=== PATIENT | female | born 1970 | race Caucasian/White ===

== ENCOUNTER 2021-10-12 18:46 | Emergency (ER) | payer OTHER, MEDICAID ==
[~2021-10-12] VITALS: Ht 177.8 cm; Wt 117.9 kg
[2021-10-12 18:47] VITALS: BP 140/108
--- NOTE | 2021-10-12 18:52 | NUR ---
Patient taken to lobby.
--- NOTE | 2021-10-13 01:20 | NUR ---
PATIENT LEFT WITHOUT BEING SEEN BY DR. Deluca. NO FURTHER CARE PROVIDED FOR PATIENT.
== END 2021-10-13 01:20 | disposition left against medical advice (07) ==
LOC: MED 18:46
DX: R51.9 Headache, unspecified (principal); Z53.21 Procedure and treatment not carried out due to patient leaving prior to being seen by health care provider